=== PATIENT | male | born 1995 | race Hispanic/Latino ===

== ENCOUNTER 2022-01-04 15:50 | Emergency (ER) | payer OTHER ==
[~2022-01-04] VITALS: Ht 177.8 cm; Wt 68.2 kg
[2022-01-04 15:51] VITALS: BP 142/85
[2022-01-04] MEDS ORDERED: DOXYCYCLINE HYCLATE 100MG TABLET PO ONE (16:25)
== END 2022-01-04 16:47 | disposition home or self-care (01) ==
LOC: M ED 15:50
DX: S20.369A Insect bite (nonvenomous) of unspecified front wall of thorax, initial encounter (principal); Z86.79 Personal history of other diseases of the circulatory system; Y93.9 Activity, unspecified; Y92.9 Unspecified place or not applicable